=== PATIENT | male | born 1970 | race Caucasian/White ===

== ENCOUNTER 2024-08-23 18:52 | Emergency (ER) | payer BC, SELFPAY ==
[2024-08-23] VITALS (7 sets, daily range): BP systolic 91–131; BP diastolic 58–80; PULSE 59–82; RESP 16–18; TEMP 36.7–37.2; O2SAT 95–98; BMI 25.9
--- NOTE | 2024-08-23 19:11 | CT_ITS ---
PROCEDURE: CT CHEST, ABD, PEL W/CONTRAST 08/23/2024 REASON FOR EXAM: LEFT RIB TRAUMA FELL 10 FEET TECHNIQUE: CT CHEST, ABD, PEL W/CONTRAST coronal and Sagittal reconstruction series were provided. One or more dose reduction techniques were used (e.g., Automated exposure control, adjustment of the mA and/or kV according to patient size, use of iterative reconstruction technique. CONTRAST: Isovue 370 VOLUME: 97 mL RADIATION DOSE SUMMARY: CTDlvol: 26.6 mGy DLP: 1337 mGycm COMPARISON: None FINDINGS: CHEST: Mediastinum: Trace heterogeneous material within the anterior mediastinum, without well-defined borders or widening of the mediastinum. There are few calcified thoracic nodes. Heart: Normal size. No significant coronary calcification. Thoracic Aorta: No thoracic aortic aneurysm or dissection. Lungs and Airways: Central airways are clear. Bibasilar atelectasis. There is subpleural ground-glass opacity in the lingula, adjacent to the rib fractures. There are tiny foci of air at the left costophrenic angle, adjacent to the 6th rib fracture (series 6, image 107). Pleura: No effusion. Bones: There are minimally displaced fractures of the anterior/lateral 3rd through 7th ribs. There is subcutaneous emphysema in the chest wall overlying the 7th rib fracture. ABDOMEN AND PELVIS: Liver: Hypodense lesion in the right hepatic lobe measuring 1.4 cm and 60 Hounsfield units (series 3, image 40). Gallbladder: Unremarkable, without radiodense stones Spleen: Scattered calcifications suggestive of prior granulomatous disease. Pancreas: Normal size without evidence of mass surrounding inflammation or ductal dilation. Adrenals: Unremarkable Kidneys: Right renal cyst. No hydronephrosis or stone on either side. Bladder: Unremarkable. Reproductive Organs: Unremarkable Bowel: No obstruction or inflammation. Vasculature: The abdominal aorta and IVC are normal. Peritoneum / Retroperitoneum: No free fluid. Bones: No displaced fracture in the abdomen or pelvis. There is a mixed lytic and sclerotic lesion in the left iliac bone measuring 1.1 cm (series 3, image 89). CT/CT Chest, Abd, Pel w/Contrast IMPRESSION: 1. Minimally displaced fractures of the anterior/lateral aspect of the left 3r d through 7th ribs. Tiny foci of intrathoracic air at the left costophrenic angle, adjacent to the 6th rib fracture could repr esent laceration, or tiny foci of subpleural air or pneumothorax. Additionally, there is subcutaneous emphysema in the deep tanmay st wall overlying the 7th rib fracture. Consider short interval follow-up imaging. 2. Ground-glass opacity in the lung adjacent to the rib fractures may represen t pulmonary contusion. 3. No acute traumatic abnormality in the abdomen or pelvis. 4. Trace heterogeneous density in the anterior mediastinum, favored to represe nt residual thymus given absence of apparent aortic injury, though trace mediastinal hematoma could appear similar in the se tting of trauma. Recommend attention on future exams. 5. Mixed lytic and sclerotic density in the left iliac bone measuring 1.1 cm, nonspecific. Recommend dedicated imaging if patient has risk factors or history of malignancy, or pain in this location. 6. Indeterminate lesion in the right hepatic lobe measuring 1.4 cm. Consider hepatic MRI if patient has risk factors for malignancy per ACR white paper guidelines. Reading Location: [facility]
--- NOTE | 2024-08-23 19:13 | EDS_ITS ---
HPI HPI - Fall History of Present Illness Chief Complaint: Trauma Informant: patient Occured/Mechanism Occurred: Today Fall from Height (ft): 10 feet Usually ambulates: Without assistance Pain/Injury Pain Location: chest Quality of Pain: Sharp Current Severity: Severe Maximum Severity: Severe Associated Symptoms Associated Symptoms: Negative for Parasthesias, Weakness, Loss of function, Inability to ambulate, Loss of consciousness or Amnesia Narrative Narrative: Healthy 54-year-old male was climbing a ladder cleaning out event on his roof. He says about 10 feet in the air the ladder slid out from under him he landed straight down on top of the ladder complaining of left rib cage pain and left lateral thigh pain. No LOC. Said he did not hit his head. No neck or back pain. He is on no medications and no blood thinners. Prior similar symptoms: No Recent Illness/Hospitalization: No PFSH PFSH Medical History ACL tear Allergy/AdvReac Type Severity Reaction Status Date / Time No Known Allergies Allergy Verified 08/23/24 18:53 Social History Smoking Status: Never smoker ROS ROS ED ROS Narrative Denies recent illness. Constitutional Constitutional ED: Denies chills or fever(s) Eyes Eyes: Denies blurry vision ENT ENT ED: Denies ear pain Cardiovascular Cardiovascular: Reports chest pain Respiratory/Chest Respiratory/Chest: Denies cough or dyspnea Gastrointestinal Gastrointestinal: Denies abdominal pain, constipation, diarrhea, melena, nausea or vomiting Genitourinary Genitourinary ED: Denies dysuria or hematuria Musculoskeletal Musculoskeletal: Denies arthralgias, back pain, myalgias or neck pain Integumentary Denies abscess or Abrasions Neurologic Neurologic: Denies headache(s) Psychiatric Psychiatric: Denies anxiety or depression Endocrine Endocrinology: Denies polydipsia, polyphagia or polyuria Hematologic/Lymphatic Hematologic/Lymphatic: Denies easy bleeding, easy bruising or lymphadenopathy Allergic/Immunologic Allergic/Immunologic ED: Denies mouth swelling, tongue swelling or urticaria EXAM Physical Exam Narrative Exam Narrative: 58-year-old male lying in bed vital signs stable afebrile. Pulse ox 96% on room air no signs of hypoxia. H EENT exam pupils round react to light. No signs of trauma to his face or scalp. Nontender no swelling. Neck C-spine nontender. Trachea midline. Back and spine nontender. No trauma. Lungs clear to auscultation bilaterally. Heart regular rhythm rate about 70 no murmur. Left anterior clavicular and left lateral lower rib cage pain. No ecchymosis or bruising. No subcu air or crepitance. Right chest wall nontender. Abdomen soft nondistended normal bowel sounds without peritoneal signs. No bruising. Pelvic girdle intact. 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 Normal radial pulses. Nontender no deformity. Normal range of motion. He can lift either arm up. He has normal flexion extension at elbows and wrist. Right lower extremity nontender has mild tenderness to left lateral thigh. No gross bony deformity. Knee, hip and left ankle are nontender normal dorsi plantarflexion bilaterally. Neurologically is awake alert. Answering questions following commands. GCS 15. Const Vital Signs: 08/23/24 18:54 08/23/24 18:57 08/23/24 19:22 Temperature 98.9 F Temperature Source Temporal Pulse Rate 67 59 L Respiratory Rate 18 16 Respiratory Effort Normal Respiratory Depth Normal Respiratory Pattern Normal Blood Pressure 121/79 H 110/67 Blood Pressure Mean 93 81 Pulse Ox 96 98 Oxygen Delivery Method Room Air Room Air Room Air 08/23/24 20:00 08/23/24 20:30 08/23/24 21:00 Temperature Temperature Source Pulse Rate 68 67 63 Respiratory Rate 18 18 18 Respiratory Effort Respiratory Depth Respiratory Pattern Blood Pressure 131/78 H 105/59 L 91/58 L Blood Pressure Mean 95 74 69 Pulse Ox 96 97 96 Oxygen Delivery Method Room Air Room Air Room Air 08/23/24 21:30 08/23/24 21:30 08/23/24 22:00 Temperature 98.1 F Temperature Source Pulse Rate 82 82 74 Respiratory Rate 18 18 18 Respiratory Effort Respiratory Depth Respiratory Pattern Blood Pressure 104/80 104/80 112/68 Blood Pressure Mean 88 88 82 Pulse Ox 95 95 96 Oxygen Delivery Method Room Air Room Air Positive well nourished and well developed; Negative for cachectic, contractures or unkempt General Appearance ED: well developed; Negative for unkempt, cachectic, contractures or NAD Nutritional Appearance: Negative for cachectic HEENT Reports normocephalic atraumatic; Negative for trauma, contusion, hematoma or tenderness Eyes PERRL and EOMs intact bilaterally Neck full ROM, no lymphadenopathy and supple Chest Wall inspection of chest normal; Negative for palpation of chest normal Chest Narrative: 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 No crepitance or subcu air. Resp normal respiratory effort, no retractions and clear to auscultation bilaterally Auscultation: Negative for rales, rhonchi, wheezes or diminished lung sounds Cardio regular rate, regular rhythm, S1 normal heart sound, S2 normal heart sound and no murmurs Rate: Negative for bradycardia or tachycardic GI non-tender, non-distended and no masses Auscultation: normoactive bowel sounds Palpation: soft; Negative for guarding or rebound tenderness present Back/Spine no CVA tenderness General Back: Negative for CVA tenderness Cervical Spine: Negative for cervical spine tenderness Lumbar Spine / Lower Back: Negative for lumbar spinal tenderness or paraspinal muscle tenderness Neuro oriented x3, CN's II-XII intact bilaterally, moves all extremities, no focal motor deficits and no sensory deficits noted Viral Coma Scale: document GCS findings Spontaneous Obeys Commands Oriented 15 Sensorium / Orientation: alert, oriented to person, oriented to place and oriented to time; Negative for orientation impaired Motor Exam: strength 5/5 throughout Psych mental status grossly normal and thought process normal Appearance: Negative for unkempt Skin Lesions: no lesions Rashes: no rashes MDM MDM MDM Narrative Medical decision making narrative: 54-year-old male fell 10 feet down and landed on top of the ladder complaining of left lower and lateral rib cage pain. Will be treated with morphine and Zofran for pain. A CT of his chest with IV contrast CT abdomen pelvis will be obtained. He has no head injury and he has no complaints of the head or neck pain or trauma. And he denies hitting his head at all. Repeat exam patient is doing well at 8:[address] PM. We discussed his CT results. Given multiple rib fractures and pulmonary contusion and the risk of developing a pneumothorax he will be transferred to a trauma center. Discussed with family they chose [facility]. I spoken to the transfer line and their physician who is excepted transfer. They would like a CT head and C-spine also which I will obtain and transfer to them. I did the other CAT scan results sent to their facility. Patient will be given additional morphine for pain. Patient doing well at 10:15 PM. There were he received another dose of morphine 6 mg for the travel to the trauma center. He is currently resting more comfortably. I have gone over the test results with both he and his family. History & Record Review Discussion w/independent historian: Patient and Family Additional record(s) reviewed:: No prior records Lab Data Attestation: I reviewed the patient's lab results. Lab results narrative: CBC shows a white count 12.8. H&H 14 and 42. Platelets 188. PT/INR of 13 and 1.0. Electrolytes show sodium 136. Gap 11. Normal BUN of 17 creatinine 0.97. Glucose 115. Liver enzymes normal. CT chest shows 5 rib fractures on the left. No hemo nor pneumothorax. CT brain and C-spine show no acute abnormality. CT abdomen shows soft tissue swelling on the abdominal wall but no solid organ injuries. Labs: Laboratory Results - last 24 hr 08/23/24 21:03 WBC 12.8 H RBC 4.66 Hgb 14.3 Hct 42.0 MCV 90.1 MCH 30.7 MCHC 34.0 RDW Std Deviation 38.8 RDW Coeff of Cory 11.9 Plt Count 188 MPV 10.1 Immature Gran % (Auto) 0.300 Neut % (Auto) 86.5 H Lymph % (Auto) 7.9 L [place] % (Auto) 4.5 Eos % (Auto) 0.5 Baso % (Auto) 0.3 Absolute Neuts (auto) 11.0 H Absolute Lymphs (auto) 1.01 Nucleated RBC % 0 PT 13.8 INR 1.0 Sodium 136 Potassium 4.1 Chloride 102 Carbon Dioxide 23.4 Anion Gap 11 BUN 17 Creatinine 0.97 Estim Creat Clear Calc 87.80 Est GFR (MDRD) Non-Af 92 BUN/Creatinine Ratio 17.4 Glucose 115 H Calcium 8.6 Total Bilirubin 0.85 AST 19 ALT 20 Alkaline Phosphatase 89 Total Protein 6.3 Albumin 4.1 Globulin 2.2 Albumin/Globulin Ratio 1.9 Radiography Diagnostic Testing: Clinical Impression(s) from Imaging Studies Chest/Abdomen/Pelvis CT 08/23/24 19:11 IMPRESSION: 1. Minimally displaced fractures of the anterior/lateral aspect of the left 3rd through 7th ribs. Tiny foci of intrathoracic air at the left costophrenic angle, adjacent to the 6th rib fracture could represent laceration, or tiny foci of subpleural air or pneumothorax. Additionally, there is subcutaneous emphysema in the deep chest wall overlying the 7th rib fracture. Consider short interval follow-up imaging. 2. Ground-glass opacity in the lung adjacent to the rib fractures may represent pulmonary contusion. 3. No acute traumatic abnormality in the abdomen or pelvis. 4. Trace heterogeneous density in the anterior mediastinum, favored to represent residual thymus given absence of apparent aortic injury, though trace mediastinal hematoma could appear similar in the setting of trauma. Recommend attention on future exams. 5. Mixed lytic and sclerotic density in the left iliac bone measuring 1.1 cm, nonspecific. Recommend dedicated imaging if patient has risk factors or history of malignancy, or pain in this location. 6. Indeterminate lesion in the right hepatic lobe measuring 1.4 cm. Consider hepatic MRI if patient has risk factors for malignancy per ACR white paper guidelines. Reading Location: [id number] Femur X-Ray 08/23/24 19:25 IMPRESSION: No acute osseous abnormality of the left femur. Reading Location: [id number] Brain CT 08/23/24 21:05 IMPRESSION: No acute intracranial or cervical spine traumatic findings. Reading Location: [id number] Cervical Spine CT 08/23/24 21:05 IMPRESSION: No acute intracranial or cervical spine traumatic findings. Reading Location: [facility] Discharge Plan Triage Chief Complaint: Trauma ED Provider: Kwabena Paris Dx/Rx/DC Orders Clinical Impression: Fall from height of greater than 3 feet, Multiple fractures of ribs, Left pulmonary contusion, Abdominal wall contusion Primary Care Provider: Jodie Velez NP Referrals: Jodie Velez NP, [employer] [Primary Care Provider] - Print Language: Bengali Disposition Disposition: Acute Care Hospital
--- NOTE | 2024-08-23 19:25 | RAD_ITS ---
PROCEDURE: FEMUR MIN 2 VIEWS 08/23/2024 REASON FOR EXAM: FALL 10 FT TECHNIQUE: FEMUR MIN 2 VIEWS COMPARISON: None FINDINGS: No displaced fracture or traumatic malalignment. Postoperative changes of the knee. Soft tissues are unremarkable. RAD/Femur Min 2 Views IMPRESSION: No acute osseous abnormality of the left femur. Reading Location: [id number]
--- NOTE | 2024-08-23 19:25 | RAD_ITS ---
PROCEDURE: FEMUR MIN 2 VIEWS 08/23/2024 REASON FOR EXAM: FALL 10 FT TECHNIQUE: FEMUR MIN 2 VIEWS COMPARISON: None FINDINGS: No displaced fracture or traumatic malalignment. Postoperative changes of the knee. Soft tissues are unremarkable. RAD/Femur Min 2 Views IMPRESSION: No acute osseous abnormality of the left femur. Reading Location: [id number]
--- NOTE | 2024-08-23 21:05 | CT_ITS ---
EXAM: BRAIN/HEAD WITHOUT CONTRAST; SPINE CERVICAL WITHOUT CONTRAS CLINICAL HISTORY: TRAUMA TO CHEST WALL COMPARISON: None. TECHNIQUE: Noncontrast images of the head and cervical spine with multiplanar reconstructions. Dose reduction techniques were used including intermediate exposure control (AEC),iterative reconstruction technique, and/or mA and/or KV dose adjustments based on patient's size. FINDINGS: HEAD: No acute intracranial hemorrhage, extra-axial collection, mass effect or evidence of acute infarct. Ventricles and subarachnoid spaces are normal in size. Orbital contents are unremarkable. Intact skull base and calvarium. Clear paranasal sinuses and mastoid air cells. Residual intravascular contrast secondary to the recently scanned contrast-enhanced body CT earlier today. CERVICAL SPINE: No acute fracture or subluxation. Alignment is anatomic, although likely positional straightening of the cervical lordosis. Minimal multilevel spondylotic changes. No prevertebral soft tissue swelling. No apical pneumothorax is seen on this exam. CT/Spine Cervical without Contras IMPRESSION: No acute intracranial or cervical spine traumatic findings. Reading Location: [id number]
--- NOTE | 2024-08-23 21:05 | CT_ITS ---
EXAM: BRAIN/HEAD WITHOUT CONTRAST; SPINE CERVICAL WITHOUT CONTRAS CLINICAL HISTORY: TRAUMA TO CHEST WALL COMPARISON: None. TECHNIQUE: Noncontrast images of the head and cervical spine with multiplanar reconstructions. Dose reduction techniques were used including intermediate exposure control (AEC),iterative reconstruction technique, and/or mA and/or KV dose adjustments based on patient's size. FINDINGS: HEAD: No acute intracranial hemorrhage, extra-axial collection, mass effect or evidence of acute infarct. Ventricles and subarachnoid spaces are normal in size. Orbital contents are unremarkable. Intact skull base and calvarium. Clear paranasal sinuses and mastoid air cells. Residual intravascular contrast secondary to the recently scanned contrast-enhanced body CT earlier today. CERVICAL SPINE: No acute fracture or subluxation. Alignment is anatomic, although likely positional straightening of the cervical lordosis. Minimal multilevel spondylotic changes. No prevertebral soft tissue swelling. No apical pneumothorax is seen on this exam. CT/Spine Cervical without Contras IMPRESSION: No acute intracranial or cervical spine traumatic findings. Reading Location: [id number]
--- NOTE | 2024-08-23 21:05 | CT_ITS ---
EXAM: BRAIN/HEAD WITHOUT CONTRAST; SPINE CERVICAL WITHOUT CONTRAS CLINICAL HISTORY: TRAUMA TO CHEST WALL COMPARISON: None. TECHNIQUE: Noncontrast images of the head and cervical spine with multiplanar reconstructions. Dose reduction techniques were used including intermediate exposure control (AEC),iterative reconstruction technique, and/or mA and/or KV dose adjustments based on patient's size. FINDINGS: HEAD: No acute intracranial hemorrhage, extra-axial collection, mass effect or evidence of acute infarct. Ventricles and subarachnoid spaces are normal in size. Orbital contents are unremarkable. Intact skull base and calvarium. Clear paranasal sinuses and mastoid air cells. Residual intravascular contrast secondary to the recently scanned contrast-enhanced body CT earlier today. CERVICAL SPINE: No acute fracture or subluxation. Alignment is anatomic, although likely positional straightening of the cervical lordosis. Minimal multilevel spondylotic changes. No prevertebral soft tissue swelling. No apical pneumothorax is seen on this exam. CT/Brain/Head without Contrast IMPRESSION: No acute intracranial or cervical spine traumatic findings. Reading Location: [id number]
--- NOTE | 2024-08-23 21:05 | CT_ITS ---
EXAM: BRAIN/HEAD WITHOUT CONTRAST; SPINE CERVICAL WITHOUT CONTRAS CLINICAL HISTORY: TRAUMA TO CHEST WALL COMPARISON: None. TECHNIQUE: Noncontrast images of the head and cervical spine with multiplanar reconstructions. Dose reduction techniques were used including intermediate exposure control (AEC),iterative reconstruction technique, and/or mA and/or KV dose adjustments based on patient's size. FINDINGS: HEAD: No acute intracranial hemorrhage, extra-axial collection, mass effect or evidence of acute infarct. Ventricles and subarachnoid spaces are normal in size. Orbital contents are unremarkable. Intact skull base and calvarium. Clear paranasal sinuses and mastoid air cells. Residual intravascular contrast secondary to the recently scanned contrast-enhanced body CT earlier today. CERVICAL SPINE: No acute fracture or subluxation. Alignment is anatomic, although likely positional straightening of the cervical lordosis. Minimal multilevel spondylotic changes. No prevertebral soft tissue swelling. No apical pneumothorax is seen on this exam. CT/Brain/Head without Contrast IMPRESSION: No acute intracranial or cervical spine traumatic findings. Reading Location: [id number]
[2024-08-23 21:15] LABS: Hematocrit 42.0 % (40-54); Hemoglobin 14.3 g/dL (13.0-16.5); Immature Granulocytes Count 0.040 X10^3/uL (0.0-0.0); Mean Corp Hgb Conc 34.0 g/dL (32-36); Mean Corpuscular Volume 90.1 fL (80-94); Mean Platelet Vol. 10.1 fl (6.2-12.0); NRBC Flagged by Analyzer 0 % (0-5); Platelet Count 188 K/mm3 (150-450); RBC Distribution Width CV 11.9 % (11.6-14.6); RBC Distribution Width SD 38.8 fl (35.1-43.9); Red Blood Count 4.66 M/mm3 (4.6-6.2); White Blood Count 12.8 K/mm3 (4.4-11.0)
[2024-08-23 21:42] LABS: Prothrombin Time (Protime)PT. 13.8 SECONDS (11.7-14.9)
[2024-08-23 21:54] LABS: AST(SGOT) 19 U/L (<=37); Alanine Aminotransfer ALT/SGPT 20 U/L (<=46); Albumin, Serum 4.1 g/dL (3.5-5.0); Alkaline Phosphatase 89 U/L (40-129); Anion Gap 11 (5-15); BUN 17 mg/dL (4-19); BUN/Creat Ratio 17.4 RATIO (10-20); Calcium,Total 8.6 mg/dL (7.6-11.0); Carbon Dioxide 23.4 mmol/L (21.0-32.0); Chloride 102 mmol/L (98-108); Estimated Creatinine Clearance 87.80 ml/min (50-250); Globulin 2.2 g/dL (2.2-4.2); Glucose 115 mg/dL (70-99); Potassium 4.1 mmol/L (3.3-5.1)
== END 2024-08-23 22:30 | disposition short-term general hospital (02) ==
PROVIDERS: Emergency Provider Emergency Medicine; PCP Nurse Practitioner Primary Care; Visit Provider Emergency Medicine
DX: S22.42XA Multiple fractures of ribs, left side, initial encounter for closed fracture (principal); S27.321A Contusion of lung, unilateral, initial encounter; S30.1XXA Contusion of abdominal wall, initial encounter; M79.652 Pain in left thigh; W11.XXXA Fall on and from ladder, initial encounter; Y93.H9 Activity, other involving exterior property and land maintenance, building and construction
CPT/HCPCS: 70450; 71260; 72125; 73552; 74177; 80053; 85025; 85610; 96374; 96375; 96376; 99285; Q9967; A4216; J2405